=== PATIENT | male | born 1930 | race African-American/Black ===

== ENCOUNTER 2017-02-13 04:51 | Emergency (ER) | payer MEDICARE, BC ==
[~2017-02-13] VITALS: Ht 185.4 cm; Wt 106.6 kg
--- NOTE | 2017-02-13 04:50 | Emergency Room Report ---
History of Present Illness General Source: Patient, EMS Present Illness HPI Paramedics were called for altered mentation. They found the patient had a blood sugar of 46. They gave him 200 mL of D10W. His blood sugar then was 138. The patient states that he ate an early dinner. He denies any fevers, vomiting, diarrhea, chest pain, dysuria, cough, dyspnea, URI sy, rashes. There' s been no change in his insulin dosing. He uses 12-15 lantus at night and 10 in am. He is on a sliding scale also. Review of his log shows frequent low blood sugar in am's. Last hospital visit 2 years ago for hypoglycemia. Family state his mentation is improving. Allergies: Coded Allergies: CLOPIDOGREL (Unverified Allergy, Mild, Fainting, 10/10/14) PENICILLINS (Verified Allergy, Unknown, 07/22/15) Uncoded Allergies: PCN (Allergy, Unknown, 07/22/15) Patient History Past Medical History: see triage record Social History: Denies: smoking, alcohol use, drug use Social History Narrative retired pharmacist Reviewed Nursing Documentation: PMH: Agreed, PSxH: Agreed Review of Systems All Other Systems: negative except mentioned in HPI Physical Exam Vital Signs Date Time Temp Pulse Resp B/P (MAP) Pulse Ox O2 Delivery O2 Flow Rate FiO2 02/13/17 04:41 98.1 96 14 130/69 99 02/13/17 05:21 Room Air Sp02 EP Interpretation: reviewed, normal General Appearance: well appearing, no apparent distress, GCS 15 Head: normocephalic Eyes: bilateral eye normal inspection, bilateral eye PERRL, bilateral eye EOMI ENT: dry mucus membranes Neck: supple Respiratory: lungs clear, normal breath sounds Cardiovascular #1: regular rate, rhythm Cardiovascular #2: 2+ radial (R) Gastrointestinal: normal inspection, normal bowel sounds, non tender, no mass, non-distended Musculoskeletal: back normal, gait/station normal, normal range of motion Neurologic: alert, oriented x3, grossly normal Psychiatric: mood/affect normal Skin: normal inspection, warm/dry Medical Decision Making Diagnostic Impression: Primary Impression: Hypoglycemia Additional Impression: Renal insufficiency ER Course Patient presents with hypoglycemia. DDx: AMI, occult infection, insulin excess , poor oral intake, renal insufficiency amongst others. Emergent evaluation indicated with EKG, labs, CXR. Patient given snack and repeated glucose determinations planned. EKG without injury. CXR no infiltrates. Labs with renal insufficiency, though unchanged for several years. Review of insulin log as reported. Advised to decrease the PM dose of Lantus. Patient improved. D/C glucose 116. Patient stable for outpatient observation and treatment. Laboratory Tests Test 02/13/17 05:00 02/13/17 07:30 White Blood Count 5.5 K/UL (4.8-10.8) Red Blood Count 4.82 M/UL (4.70-6.10) Hemoglobin 11.3 G/DL (14.2-18.0) L Hematocrit 38.6 % (42.0-52.0) L Mean Corpuscular Volume 80 FL (80-99) Mean Corpuscular Hemoglobin 23.4 PG (27.0-31.0) L Mean Corpuscular Hemoglobin Concent 29.3 G/DL (32.0-36.0) L Red Cell Distribution Width 19.2 % (11.6-14.8) H Platelet Count 180 K/UL (150-450) Mean Platelet Volume 11.6 FL (6.5-10.1) H Neutrophils (%) (Auto) 59.9 % (45.0-75.0) Lymphocytes (%) (Auto) 20.4 % (20.0-45.0) Monocytes (%) (Auto) 8.4 % (1.0-10.0) Eosinophils (%) (Auto) 10.2 % (0.0-3.0) H Basophils (%) (Auto) 1.1 % (0.0-2.0) Prothrombin Time 26.7 SEC (9.30-11.50) H Prothrombin Time INR 2.5 (0.9-1.1) H PTT 36 SEC (23-33) H Sodium Level 141 MMOL/L (136-145) Potassium Level 4.0 MMOL/L (3.5-5.1) Chloride Level 104 MMOL/L (98-107) Carbon Dioxide Level 26 MMOL/L (21-32) Anion Gap 11 mmol/L (5-15) Blood Urea Nitrogen 29 mg/dL (7-18) H Creatinine 2.1 MG/DL (0.55-1.30) H Estimate Glomerular Filtration Rate mL/min (>60) Glucose Level 125 MG/DL (74-106) H Calcium Level 8.3 MG/DL (8.5-10.1) L Total Bilirubin 0.1 MG/DL (0.2-1.0) L Aspartate Amino Transferase (AST) 22 U/L (15-37) Alanine Aminotransferase (ALT) 23 U/L (12-78) Alkaline Phosphatase 77 U/L (46-116) Total Creatine Kinase 205 U/L (26-308) Troponin I 0.006 ng/mL (0.000-0.056) Pro-B-Type Natriuretic Peptide 110 pg/mL (0-125) Total Protein 7.3 G/DL (6.4-8.2) Albumin 3.3 G/DL (3.4-5.0) L Globulin 4.0 g/dL Albumin/Globulin Ratio 0.8 (1.0-2.7) L Urine Color Pale yellow Urine Appearance Clear Urine pH 5 (4.5-8.0) Urine Specific [place] 1.020 (1.005-1.035) Urine Protein 3+ (NEGATIVE) H Urine Glucose (UA) 1+ (NEGATIVE) H Urine Ketones Negative (NEGATIVE) Urine Occult Blood 2+ (NEGATIVE) H Urine Nitrite Negative (NEGATIVE) Urine Bilirubin Negative (NEGATIVE) Urine Urobilinogen Normal MG/DL (0.0-1.0) Urine Leukocyte Esterase 1+ (NEGATIVE) H Urine RBC 2-4 /HPF (0 - 0) H Urine WBC 0-2 /HPF (0 - 0) Urine Squamous Epithelial Cells Occasional /LPF Urine Bacteria Occasional /HPF (NONE) Urine Sperm Few /LPF (NONE) EKG Diagnostic Results Rate: normal Rhythm: NSR ST Segments: no acute changes Rhythm Strip Diag. Results EP Interpretation: yes Rhythm: NSR, no PVC's, no ectopy Last Vital Signs Date Time Temp Pulse Resp B/P (MAP) Pulse Ox O2 Delivery O2 Flow Rate FiO2 02/13/17 09:00 98.4 84 20 120/65 100 Room Air Status: improved Disposition: HOME, SELF-CARE Condition: Improved Pa Ramos M.D. Feb 13, 2017 04:50
[~2017-02-13 04:51] MED LIST: COUMADIN5 MG ORAL; DRISDOL50000 UNIT ORAL; LANTUS SOL100 UNIT/1 SUBQ; LANTUS5 UNITS SUBQ; LASIX40 MG ORAL; NORVASC10 MG ORAL; NOVOLOG100 UNIT/3 SUBQ; NOVOLOG100 UNITS1 SUBQ; ULORIC40 MG ORAL; ULORIC80 MG ORAL; VASOTEC20 MG ORAL; WARFARIN SODIUM2 MG ORAL; WARFARIN SODIUM5 MG ORAL; ZEMPLAR1 MC1 ORAL
[2017-02-13 05:21] VITALS: BP 117/51
[2017-02-13 05:24] LABS: BASOPHILS % (AUTO) 1.1 % (0.0-2.0); EOSINOPHILS % (AUTO) 10.2 % (0.0-3.0); LYMPHOCYTES % (AUTO) 20.4 % (20.0-45.0); MEAN CORPUSCULAR HEMOGLOBIN 23.4 PG (27.0-31.0); MEAN CORPUSCULAR HGB CONC 29.3 G/DL (32.0-36.0); MEAN CORPUSCULAR VOLUME 80 FL (80-99); MEAN PLATELET VOLUME 11.6 FL (6.5-10.1); MONOCYTES % (AUTO) 8.4 % (1.0-10.0); NEUTROPHILS % (AUTO) 59.9 % (45.0-75.0); PLATELET COUNT 180 K/UL (150-450); RED BLOOD COUNT 4.82 M/UL (4.70-6.10); RED CELL DISTRIBUTION WIDTH 19.2 % (11.6-14.8); WHITE BLOOD COUNT 5.5 K/UL (4.8-10.8)
[2017-02-13 05:45] LABS: ANION GAP 11 mmol/L (5-15); CALCIUM 8.3 MG/DL (8.5-10.1); CARBON DIOXIDE 26 MMOL/L (21-32); CHLORIDE 104 MMOL/L (98-107); CREATININE 2.1 MG/DL (0.55-1.30); INR 2.5 (0.9-1.1); PROTHROMBIN TIME 26.7 SEC (9.30-11.50); SODIUM 141 MMOL/L (136-145)
[2017-02-13 05:57] LABS: ALANINE AMINOTRANSFERASE 23 U/L (12-78); ALBUMIN/GLOBULIN RATIO 0.8 (1.0-2.7); ASPARTATE AMINO TRANSFERASE 22 U/L (15-37); TOTAL PROTEIN 7.3 G/DL (6.4-8.2)
[2017-02-13 06:40] VITALS: BP 135/60
[2017-02-13 07:44] LABS: APPEARANCE,URINE CLEAR; KETONES,URINE NEGATIVE (NEGATIVE); LEUKOCYTE ESTERASE ,URINE 1+ (NEGATIVE); NITRITE,URINE NEGATIVE (NEGATIVE); PH,URINE 5 (4.5-8.0); PROTEIN,URINE 3+ (NEGATIVE); UROBILINOGEN,URINE NORMAL MG/DL (0.0-1.0)
[2017-02-13 07:56] LABS: BACTERIA,URINE OCCASIONAL /HPF; SQUAMOUS EPITHELIAL CELL,UR OCCASIONAL /LPF (NONE/OCC); WBC,URINE 0-2 /HPF (0 - 0)
[2017-02-13 09:00] VITALS: BP 120/65
--- NOTE | 2017-02-13 12:12 | Diagnostic Imaging Report ---
Indication: Dyspnea Comparison: July 22, 2015 A single view chest radiograph was obtained. Findings: Cardiomediastinal appearance is within normal limits for age. Pulmonary vascularity is appropriate. The diaphragmatic contour is smooth and costophrenic angles are sharp. No pleural effusions are identified. The bones are osteopenic. Osteophytes noted within the thoracic spine.. Impression: No acute findings
--- NOTE | 2017-02-27 00:22 | Cardiology Report ---
APPROVED REPORT EKG Measurement Heart [id number] CT [id number] Sinus rhythm with 1st degree AV block Left axis deviation Abnormal ECG
== END 2017-02-13 09:00 | disposition home or self-care (01) ==
LOC: EDBD 04:51 → EMR 06:00
DX: E16.2 Hypoglycemia, unspecified (principal); N28.9 Disorder of kidney and ureter, unspecified; R41.82 Altered mental status, unspecified; Z88.0 Allergy status to penicillin; Z88.8 Allergy status to other drugs, medicaments and biological substances
CPT/HCPCS: 36415; 71010; 80053; 81003; 82550; 83880; 84484; 85025; 85610; 85730; 93005; 99283

== ENCOUNTER 2017-08-28 17:27 | Inpatient (IN) | payer MEDICARE, BC ==
[~2017-08-28] VITALS: Ht 185.4 cm; Wt 86.2 kg
[~2017-08-28 17:27] MED LIST changes: +WARFARIN SODIUM1 MG ORAL
--- NOTE | 2017-08-28 17:40 | Emergency Room Report ---
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 Patient states that it all became very heavy and very uncomfortable within the last 3 days. Denies having history of heart attack CHF or pulmonary edema. States that he was recently hospitalized at [facility] Allergies: Coded Allergies: CLOPIDOGREL (Unverified Allergy, Mild, Fainting, 10/10/14) ASPIRIN (Unverified Allergy, Unknown, 08/28/17) PENICILLINS (Verified Allergy, Unknown, 07/22/15) TAMSULOSIN (Unverified Allergy, Unknown, 08/28/17) Uncoded Allergies: PCN (Allergy, Unknown, 07/22/15) Patient History Past Medical History: see triage record Past Surgical History: none Pertinent Family History: none Reviewed Nursing Documentation: PMH: Agreed; PSxH: Agreed Nursing Documentation-PMH Hx Cardiac Problems: Yes - Rt nephrectomy Hx Hypertension: Yes Hx Diabetes: Yes Hx Cancer: Yes Hx Gastrointestinal Problems: No Hx Neurological Problems: No Review of Systems All Other Systems: negative except mentioned in HPI Physical Exam Vital Signs Date Time Temp Pulse Resp B/P (MAP) Pulse Ox O2 Delivery O2 Flow Rate FiO2 08/28/17 17:07 98.1 96 16 117/89 99 Room Air 98.1 Sp02 EP Interpretation: reviewed, normal General Appearance: alert, GCS 15, moderate distress Head: normocephalic, atraumatic Eyes: bilateral eye normal inspection, bilateral eye PERRL, bilateral eye EOMI ENT: normal pharynx, normal voice, moist mucus membranes Neck: normal inspection, full range of motion, supple Respiratory: normal inspection, lungs clear, normal breath sounds, no respiratory distress, no retraction, no wheezing, speaking full sentences, chest symmetrical Cardiovascular #1: normal inspection, regular rate, rhythm, no edema, normal capillary refill Cardiovascular #2: 2+ radial (R), 2+ radial (L) Gastrointestinal: normal inspection, non tender, soft, non-distended, no guarding Genitourinary: other - ++scrotal swelling, no erythema or fluctance Musculoskeletal: back normal, normal range of motion, other - Bilateral lower chimney 2+ pitting edema Neurologic: normal inspection, alert, oriented x3, responsive, motor strength/ tone normal, sensory intact, speech normal Psychiatric: anxious Skin: normal inspection, normal color, no rash, warm/dry, well hydrated, normal turgor Medical Decision Making Diagnostic Impression: Primary Impression: Renal insufficiency Additional Impressions: Supratherapeutic INR UTI (urinary tract infection) Scrotal edema Leg edema ER Course 86-year-old male brought in for bilateral lower chimney swelling as well as scrotal edema DDX: Fluid overload, already on Coumadin for right lower sanchez any DVT Plan: Obtain labs, ua, EKG, CXR ER course: Patient has been monitored during ED stay, HD stable ceftriaxone given for UTI noted to have elevated INR Disposition: Patient is to be admitted to [facility] D/W hospitalist Dr Fine Please note that this Emergency Department Report was dictated using [employer] counselor technology software, occasionally this can lead to erroneous entry secondary to interpretation by the dictation equipment. EKG Diagnostic Results EP Interpretation: Yes Rate: normal Rhythm: NSR ST Segments: low voltage ASA given to patient: No Rhythm Strip EP Interpretation: Yes Rate: 79 Rhythm: NSR, no PVCs, no ectopy Chest X-ray CXR: Ordered: Yes 1 view Indication: cp EP interpretation: Yes Interpretation: pulm vasc congestion, chemoport noted Impression: pulm vasc congestion, chemoport noted Electronically signed by Andre Syed MD Laboratory Tests Test 08/28/17 18:05 08/28/17 18:08 White Blood Count 11.2 K/UL (4.8-10.8) H Red Blood Count 3.09 M/UL (4.70-6.10) L Hemoglobin 9.1 G/DL (14.2-18.0) L Hematocrit 27.5 % (42.0-52.0) L Mean Corpuscular Volume 89 FL (80-99) Mean Corpuscular Hemoglobin 29.4 PG (27.0-31.0) Mean Corpuscular Hemoglobin Concent 33.1 G/DL (32.0-36.0) Red Cell Distribution Width 13.4 % (11.6-14.8) Platelet Count 142 K/UL (150-450) L Mean Platelet Volume 8.9 FL (6.5-10.1) Neutrophils (%) (Auto) 75.9 % (45.0-75.0) H Lymphocytes (%) (Auto) 15.5 % (20.0-45.0) L Monocytes (%) (Auto) 5.2 % (1.0-10.0) Eosinophils (%) (Auto) 2.9 % (0.0-3.0) Basophils (%) (Auto) 0.6 % (0.0-2.0) Prothrombin Time 52.2 SEC (9.30-11.50) H Prothrombin Time INR 5.4 (0.9-1.1) *H PTT 44 SEC (23-33) H Sodium Level 134 MMOL/L (136-145) L Potassium Level 5.0 MMOL/L (3.5-5.1) Chloride Level 108 MMOL/L (98-107) H Carbon Dioxide Level 22 MMOL/L (21-32) Anion Gap 4 mmol/L (5-15) L Blood Urea Nitrogen 27 mg/dL (7-18) H Creatinine 2.2 MG/DL (0.55-1.30) H Estimate Glomerular Filtration Rate mL/min (>60) Glucose Level 78 MG/DL (74-106) Lactic Acid Level 1.00 mmol/L (0.4-2.0) Calcium Level 7.9 MG/DL (8.5-10.1) L Total Bilirubin 0.1 MG/DL (0.2-1.0) L Aspartate Amino Transferase (AST) 30 U/L (15-37) Alanine Aminotransferase (ALT) 8 U/L (12-78) L Alkaline Phosphatase 89 U/L (46-116) Total Creatine Kinase 95 U/L (26-308) Troponin I 0.010 ng/mL (0.000-0.056) Pro-B-Type Natriuretic Peptide 666 pg/mL (0-125) H Total Protein 5.2 G/DL (6.4-8.2) L Albumin 1.6 G/DL (3.4-5.0) L Globulin 3.6 g/dL Albumin/Globulin Ratio 0.4 (1.0-2.7) L Urine Color Yellow Urine Appearance Slightly cloudy Urine pH 5 (4.5-8.0) Urine Specific [place] 1.020 (1.005-1.035) Urine Protein 2+ (NEGATIVE) H Urine Glucose (UA) Negative (NEGATIVE) Urine Ketones Negative (NEGATIVE) Urine Occult Blood 5+ (NEGATIVE) H Urine Nitrite Negative (NEGATIVE) Urine Bilirubin Negative (NEGATIVE) Urine Urobilinogen Normal MG/DL (0.0-1.0) Urine Leukocyte Esterase 3+ (NEGATIVE) H Urine RBC 5-10 /HPF (0 - 0) H Urine WBC 10-15 /HPF (0 - 0) H Urine Squamous Epithelial Cells None /LPF (NONE/OCC) Urine Amorphous Sediment Few /LPF (NONE) H Urine Bacteria Many /HPF (NONE) H Urine Yeast Few /HPF (NONE) H Last Vital Signs Date Time Temp Pulse Resp B/P (MAP) Pulse Ox O2 Delivery O2 Flow Rate FiO2 08/28/17 17:07 98.1 96 16 117/89 99 Room Air 98.1 Disposition: ADMITTED INPATIENT Condition: Serious Andre Syed M.D. Aug 28, 2017 17:40
[2017-08-28 17:45] VITALS: BP 107/49
[2017-08-28] MEDS ORDERED: LEVAQUIN750 MG ORAL (18:22)
[2017-08-28] MEDS ORDERED: TUMS200 M1 PO (18:22)
[2017-08-28] MEDS ORDERED: FAMOTIDINE20 MG ORAL (18:22)
[2017-08-28] MEDS ORDERED: ACETAMINOPHEN325 M1 ORAL (18:22)
[2017-08-28] MEDS ORDERED: PATANOL1 DROP BOTH EYES (18:22)
[2017-08-28] MEDS ORDERED: LOPERAMIDE2 MG PO (18:22)
[2017-08-28] MEDS ORDERED: FERROUS SULFAT325 MG ORAL (18:22)
[2017-08-28] MEDS ORDERED: BEPREVE10 ML OP (18:22)
[2017-08-28] MEDS ORDERED: COMPAZINE10 MG ORAL (18:22)
[2017-08-28] MEDS ORDERED: ZOFRAN4 M3 ORAL (18:22)
[2017-08-28] MEDS ORDERED: REGLAN10 MG ORAL (18:22)
[2017-08-28] MEDS ORDERED: PERCOCET 5-3251 EACH ORAL (18:22)
[2017-08-28] MEDS ORDERED: GABAPENTIN100 MG ORAL (18:22)
[2017-08-28] MEDS ORDERED: PROSCAR5 MG ORAL (18:22)
[2017-08-28] MEDS ORDERED: MIRTAZAPINE15 M3 ORAL (18:22)
[2017-08-28 18:23] LABS: BASOPHILS % (AUTO) 0.6 % (0.0-2.0); EOSINOPHILS % (AUTO) 2.9 % (0.0-3.0); HEMATOCRIT 27.5 % (42.0-52.0); HEMOGLOBIN 9.1 G/DL (14.2-18.0); LYMPHOCYTES % (AUTO) 15.5 % (20.0-45.0); MEAN CORPUSCULAR VOLUME 89 FL (80-99); MONOCYTES % (AUTO) 5.2 % (1.0-10.0); NEUTROPHILS % (AUTO) 75.9 % (45.0-75.0); PLATELET COUNT 142 K/UL (150-450); RED BLOOD COUNT 3.09 M/UL (4.70-6.10); RED CELL DISTRIBUTION WIDTH 13.4 % (11.6-14.8); WHITE BLOOD COUNT 11.2 K/UL (4.8-10.8)
[2017-08-28 18:41] LABS: BILIRUBIN, URINE NEGATIVE (NEGATIVE); GLUCOSE, URINE (UA) NEGATIVE (NEGATIVE); KETONES,URINE NEGATIVE (NEGATIVE); LEUKOCYTE ESTERASE ,URINE 3+ (NEGATIVE); NITRITE,URINE NEGATIVE (NEGATIVE); PH,URINE 5 (4.5-8.0); PROTEIN,URINE 2+ (NEGATIVE); UROBILINOGEN,URINE NORMAL MG/DL (0.0-1.0)
[2017-08-28 18:44] LABS: ANION GAP 4 mmol/L (5-15); BLOOD UREA NITROGEN 27 mg/dL (7-18); CALCIUM 7.9 MG/DL (8.5-10.1); CARBON DIOXIDE 22 MMOL/L (21-32); CHLORIDE 108 MMOL/L (98-107); CREATININE 2.2 MG/DL (0.55-1.30); SODIUM 134 MMOL/L (136-145)
[2017-08-28 18:49] LABS: APPEARANCE,URINE SLIGHTLY CLOUDY; COLOR,URINE YELLOW
[2017-08-28 18:55] LABS: ALANINE AMINOTRANSFERASE 8 U/L (12-78); ALBUMIN 1.6 G/DL (3.4-5.0); ALBUMIN/GLOBULIN RATIO 0.4 (1.0-2.7); ALKALINE PHOSPHATASE 89 U/L (46-116); ASPARTATE AMINO TRANSFERASE 30 U/L (15-37); BILIRUBIN,TOTAL 0.1 MG/DL (0.2-1.0); CREATINE KINASE 95 U/L (26-308)
[2017-08-28 18:56] LABS: INR 5.4 (0.9-1.1)
[2017-08-28] MEDS ORDERED: cefTRIAXone 1 GM in NS 55 ML IVPB ONE (19:00)
[2017-08-29] VITALS: BP 115/60
[2017-08-29] MEDS ORDERED: Tums 500mg ORAL PRN (00:45)
[2017-08-29] MEDS ORDERED: Benzonatate 100mg Perles ORAL PRN (00:45)
[2017-08-29 04:00] VITALS: BP 107/55
[2017-08-29 06:48] LABS: BASOPHILS % (AUTO) 0.8 % (0.0-2.0); EOSINOPHILS % (AUTO) 3.6 % (0.0-3.0); HEMATOCRIT 25.6 % (42.0-52.0); HEMOGLOBIN 8.3 G/DL (14.2-18.0); LYMPHOCYTES % (AUTO) 15.7 % (20.0-45.0); MEAN CORPUSCULAR VOLUME 88 FL (80-99); MONOCYTES % (AUTO) 5.8 % (1.0-10.0); NEUTROPHILS % (AUTO) 74.1 % (45.0-75.0); PLATELET COUNT 134 K/UL (150-450); RED CELL DISTRIBUTION WIDTH 13.4 % (11.6-14.8); WHITE BLOOD COUNT 7.9 K/UL (4.8-10.8)
[2017-08-29 06:51] VITALS: BP 109/52
[2017-08-29 06:54] LABS: INR 5.5 (0.9-1.1)
[2017-08-29 07:25] LABS: ANION GAP 6 mmol/L (5-15); BLOOD UREA NITROGEN 27 mg/dL (7-18); CARBON DIOXIDE 24 MMOL/L (21-32); CHLORIDE 109 MMOL/L (98-107); CREATININE 2.2 MG/DL (0.55-1.30); POTASSIUM 4.7 MMOL/L (3.5-5.1); SODIUM 138 MMOL/L (136-145)
[2017-08-29] MEDS ORDERED: Gastrograffin 30ml ORAL PRN (07:30)
[2017-08-29] MEDS ORDERED: Gastrograffin 30ml RECTAL PRN (07:30)
--- NOTE | 2017-08-29 09:30 | History and Physical Report ---
DATE OF ADMISSION: 08/28/2017 CHIEF COMPLAINT: Scrotal edema. HISTORY OF PRESENT ILLNESS: The patient is a pleasant 86-year-old male. He has a history of duodenal cancer. He previously was receiving chemotherapy, but this was discontinued because of intractable nausea and vomiting, who presented from home with complaints of scrotal edema that started on the day prior to admission. The patient is also noted worsening of lower extremity edema. He denies any pain in the scrotum. He has had no fevers or chills. He has had some intermittent diarrhea after recent placement of duodenal stent. On evaluation in the emergency room, the patient was noted to be supratherapeutic on his Coumadin with an INR of 5. He had a creatinine of 2.2. Hemoglobin was 9. In light of this severe edema, he is now admitted for further evaluation and care. PAST MEDICAL HISTORY: As above. He has a history of diabetes and history of chronic kidney disease. PAST SURGICAL HISTORY: Includes nephrectomy. CURRENT MEDICATIONS: Reconciled and reviewed. ALLERGIES: Include aspirin, Plavix, penicillin, and tamsulosin. FAMILY HISTORY: Significant for history of diabetes and lung cancer. SOCIAL HISTORY: Negative for tobacco, ethanol, or drugs. REVIEW OF SYSTEMS: GENERAL: No fever or chills. HEENT: No headaches or visual changes. CARDIOPULMONARY: No chest pain or shortness of breath. GASTROINTESTINAL: No nausea or vomiting. GENITOURINARY: No urgency or frequency. MUSCULOSKELETAL: Positive lower extremity edema and scrotal edema. NEUROLOGIC: No evidence of seizures. PHYSICAL EXAMINATION: VITAL SIGNS: Temperature 98, pulse 83, respirations 25, and blood pressure 109/52. GENERAL: The patient is well-developed male, in no apparent distress. HEART: Regular rate and rhythm. LUNGS: Clear. ABDOMEN: Soft, nontender, and nondistended. EXTREMITIES: Significant for 2 to 3+ pitting edema. There is [id number] scrotal edema noted. LABORATORY DATA: Sodium is 134, potassium is 5, BUN is 27, creatinine is 2.2. LFTs were unremarkable. Natriuretic peptide level was 666. INR was 5. UA showed 10 to 15 wbc's. ASSESSMENT: This is a pleasant male with a history of duodenal cancer, status post duodenal stent. He has a history of hypertension, diabetes, chronic kidney disease, DVT, admitted with scrotal edema. PLAN: We will repeat venous duplex. Consider CT scan of the abdomen to assess for some type of obstruction or compression of the vena cava. Cautious diuretic therapy. Antibiotics for possible UTI. Continue outpatient diabetic regimen. Urology consultation. The patient's family is requesting transfer to [facility]. We will try to arrange this with his PMD. Ephraim Fine M.D. DR: LAYLA JOB#: [id number] CC:
--- NOTE | 2017-08-29 10:59 | Diagnostic Imaging Report ---
APPROVED REPORT CPT Code: 11192 Present Symptoms Lower Extremity Pain: Right RIGHT LEG: Venous imaging reveals a patent deep venous system. There is no evidence of thrombus within the femoral, popliteal or tibial segments. The greater saphenous vein is also within normal limits. Doppler indicates normal spontaneous flow within these segments.
[2017-08-29] MEDS ORDERED: Loperamide 2mg cap ORAL PRN (11:30)
--- NOTE | 2017-08-29 11:54 | Diagnostic Imaging Report ---
Indication: Chest pain Comparison: 02/13/2017 A single view chest radiograph was obtained. Findings: Groundglass opacities demonstrated bilaterally. Heart size remains normal. Right chest port in good position with the tip situated in the right atrium. Bones are unremarkable. IMPRESSION: Patchy groundglass opacities nonspecific. Consider pulmonary edema.
--- NOTE | 2017-08-29 16:20 | Cardiology Report ---
APPROVED REPORT EKG Measurement Heart [id number] DC 312P [id number] Sinus rhythm with 1st degree AV block Low voltage QRS Possible Anterolateral infarct, age undetermined Abnormal ECG
--- NOTE | 2017-08-29 16:56 | Diagnostic Imaging Report ---
Indication: Abdominal pain Technique: Continuous helical transaxial imaging of the abdomen and pelvis was obtained from the lung bases to the pubic symphysis. No intravenous contrast was administered. Coronal 2-D reformats were also obtained. Automatic Exposure Control was utilized. Total Dose length Product (DLP): 1075.[address] Dose Index Volume (CTDIvol): 18.16 mGy Comparison: none Findings: There is a 1 cm pleural-based nodule at the left lung base nonspecific. Moderate bilateral pleural effusions are present. There is moderate ascites. The liver demonstrates multifocal lesions suspicious for metastatic neoplasm. The largest of these is probably in the inferior right lobe measuring 5 x 6.8 cm. The study is limited by the absence of intravenous contrast material which was not given. There is a suggestion of retroperitoneal lymphadenopathy especially in the area of the pancreas para-aortic region. There is a stent present within the fourth portion of the duodenum oriented transversely. There is contrast flowing through the stent into distal bowel. There is no obstruction. There are generalized, mild distended loops of small bowel noted in the right side of the abdomen. Moderate amount of fecal retention in the colon demonstrated. The appendix is demonstrated because it is opacified by contrast material and is normal in appearance. The spleen appears to be normal in size. Right kidney is absent. The left kidney shows no obvious hydronephrosis. Hypodensities in the left kidney are nonspecific. Generalized anasarca noted. Since the vascular calcifications are present. There is narrowing of intervertebral discs and accompanying endplate osteophyte formation. Hypertrophied facet joints also demonstrated.. Lilly catheter noted. Moderate calcification of aorta iliac arteries noted. IMPRESSION: Suspicion of metastatic neoplasm involving the liver. Retroperitoneal lymphadenopathy. Findings may be neoplastic. Moderate ascites Mild to moderate bilateral pleural effusions and posterior basal atelectasis. 1 cm pleural-based nodule at the left lung base may be metastatic neoplasm. Limited study due to the lack of intravenous contrast. Fourth portion duodenal stent is patent. Generalized small bowel dilatation may be due to ileus. Anasarca Atherosclerotic vascular disease Lilly catheter in good position Degenerative changes of the spine The CT scanner at [facility] is accredited by the [employer] and the scans are performed using dose optimization techniques as appropriate to a performed exam including Automatic Exposure control.
--- NOTE | 2017-08-29 17:02 | Discharge Summary ---
Discharge Summary Hospital Course Date of Admission Aug 28, 2017 at 19:20 Date of Discharge Admitting Diagnosis FLUID OVERLOAD HPI Ubaldo Sosa is a 86 year old male who was admitted on Aug 28, 2017 at 19: 20 for Fluid Overload Consultations none Procedures none Hospital Course 86 y male admitted with recent onset of worsening lower ext and scrotal edema. pt denies sob or chest pain s/p recent duodenal stent at [facility] 3 weeks ago. on eval in er cxr showed ground glass opacities. pt without cough, fever or sob. UA showed possible uti. Given single dose of rocephin and 1 dose of lasix 40. Cr 2.0(unclear baseline) Inr 5. on coumadin for dvt. coumadin was held. no signs or symptoms of bleeding. family requested transfer to [facility] with regular MD. 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 stable for transfer Discharge Condition Upon Discharge: stable Discharge Disposition Patient was discharged to [facility] Discharge Diagnoses: (1) Renal insufficiency (2) Chronic kidney disease (CKD) (3) Supratherapeutic INR (4) Leg edema (5) Scrotal edema (6) UTI (urinary tract infection) Ephraim Fine MD Aug 29, 2017 17:02
[2017-08-29] MEDS ORDERED: ACETAMINOPHEN325 M1 ORAL (18:18)
[2017-08-29] MEDS ORDERED: TESSALON PERLE100 MG ORAL (18:18)
[2017-08-29] MEDS ORDERED: DEXAMETHASONE6 MG PO (18:19)
[2017-08-29] MEDS ORDERED: CALCIUM CARBON200 M1 PO (18:19)
[2017-08-29] MEDS ORDERED: FAMOTIDINE20 MG ORAL (18:19)
[2017-08-29] MEDS ORDERED: PROSCAR5 MG ORAL (18:20)
[2017-08-29] MEDS ORDERED: GABAPENTIN100 MG ORAL (18:20)
[2017-08-29] MEDS ORDERED: IMODIUM2 MG ORAL (18:20)
[2017-08-29] MEDS ORDERED: MIRTAZAPINE15 M3 ORAL (18:22)
[2017-08-29] MEDS ORDERED: ZOFRAN4 M3 ORAL (18:22)
[2017-08-29 21:00] VITALS: BP 107/55
== END 2017-08-29 22:30 | disposition short-term general hospital (02) | DRG 729 ==
LOC: EDBD 17:27 → EMR 18:10 → 4W 19:20 → EDBEDREQ 19:59
DX: N50.89 Other specified disorders of the male genital organs (principal); N39.0 Urinary tract infection, site not specified; E87.70 Fluid overload, unspecified; I12.9 Hypertensive chronic kidney disease with stage 1 through stage 4 chronic kidney disease, or unspecified chronic kidney disease; N18.9 Chronic kidney disease, unspecified; E11.22 Type 2 diabetes mellitus with diabetic chronic kidney disease; R60.0 Localized edema; Z85.068 Personal history of other malignant neoplasm of small intestine; Z79.01 Long term (current) use of anticoagulants; Z88.6 Allergy status to analgesic agent; Z88.0 Allergy status to penicillin; Z88.8 Allergy status to other drugs, medicaments and biological substances; Z90.5 Acquired absence of kidney
CPT/HCPCS: 36415; 71045; 74176; 80048; 80053; 81003; 82550; 82962; 83605; 83880; 84484; 85025; 85610; 85730; 87040; 87086; 87324; 93005; 93971